=== PATIENT | female | born 1960 | race Caucasian/White ===

== ENCOUNTER 2018-12-03 12:23 | Emergency (ER) | payer OTHER ==
[~2018-12-03] VITALS: Ht 167.6 cm; Wt 74.8 kg
[~2018-12-03 12:23] MED LIST: AMOX875 PO; AMPDEX15CR PO; DIAZ5 PO; FAMO20 PO; KETO10 PO; PRAZ1 PO; SUCR1 PO
[2018-12-03] MEDS ORDERED: Norco 5-325 Ta1 EACH PO (13:38)
== END 2018-12-03 13:43 | disposition home or self-care (01) ==
LOC: ER 12:23
DX: N63.20 Unspecified lump in the left breast, unspecified quadrant (principal); F17.210 Nicotine dependence, cigarettes, uncomplicated; Z88.5 Allergy status to narcotic agent; Z79.899 Other long term (current) drug therapy
CPT/HCPCS: 71046; 99283-25

== ENCOUNTER 2018-12-16 08:15 | Day surgery (SDC) | payer OTHER ==
[~2018-12-16 08:15] MED LIST changes: +Norco 5-325 Ta1 EACH PO
== END 2018-12-16 22:36 | disposition home or self-care (01) ==
LOC: MOI US 08:15 → MOI MAM 08:30 → MOI US 22:36
DX: C50.912 Malignant neoplasm of unspecified site of left female breast (principal)
CPT/HCPCS: 19083; 38505; 76942; 77065; 88305; 88360; A4648